=== PATIENT | female | born 1950 | race Caucasian/White ===

== ENCOUNTER 2019-05-25 11:57 | Emergency (ER) | payer MEDICARE, OTHER ==
[~2019-05-25] VITALS: Ht 157 cm; Wt 96.9 kg
--- NOTE | 2019-05-25 12:44 | ED Cough/URI ---
General Chief Complaint: Respiratory Problems Stated Complaint: COUGH; SOB Source: patient Exam Limitations: no limitations History of Present Illness Date Seen by Provider: May 25, 2019 Time Seen by Provider: 12:41 Initial Comments Patient presents with cough, nasal congestion, body aches and chills for the past 3 days. States that she has been exposed to multiple people with the flu, primarily at her work. She did not get the flu shot this year. Denies any history of heart or lung problems. Denies abdominal pain or vomiting, does have some nausea. Denies any sinus pain pressure or headache. Taking some itht-kjz-jftuczv cold medicine with minimal relief. Allergies and Home Medications Allergies Coded Allergies: No Known Drug Allergies (Unverified , 05/25/19) Home Medications Albuterol Sulfate 2.5 Mg/0.5 Ml Vial.neb, 2.5 MG INH Q4H Prescribed by: HEATHER VIDALES on 05/25/19 1358 Ibuprofen 800 Mg Tablet, 800 MG PO Q8H PRN for PAIN-MILD Prescribed by: HEATHER VIDALES on 05/25/19 1358 Oseltamivir Phosphate 75 Mg Cap, 75 MG PO BID Prescribed by: HEATHER VIDALES on 05/25/19 1358 Patient Home Medication List Home Medication List Reviewed: Yes Review of Systems Review of Systems Constitutional: see HPI, chills, fever, malaise EENTM: nose congestion; No ear pain, No hoarseness Respiratory: see HPI, cough; No hemoptysis, No orthopnea, No short of breath Cardiovascular: No chest pain, No palpitations, No syncope Gastrointestinal: No abdominal pain, No diarrhea; loss of appetite, nausea; No vomiting Musculoskeletal: No back pain, No joint pain Skin: No change in color, No rash Past Lojhksf-Ohiajc-Aojcax Hx Past Med/Social Hx: Reviewed Nursing Past Med/Soc Hx Patient Social History Recent Foreign Travel: No Contact w/Someone Who Travel: No Physical Exam Vital Signs - First Documented 05/25/19 12:56 Temp 37.0 Pulse 76 Resp 20 B/P (MAP) 167/81 (109) Pulse Ox 94 Capillary Refill : Height: '" Weight: lbs. oz. kg; BMI Method: General Appearance: WD/WN, no apparent distress HEENT: normal ENT inspection, TMs normal, pharynx normal Neck: non-tender, supple Respiratory: chest non-tender, lungs clear, normal breath sounds, no respiratory distress, no accessory muscle use Cardiovascular: regular rate, rhythm, no edema, no gallop Gastrointestinal: normal bowel sounds, non tender, soft Extremities: non-tender, normal inspection Neurologic/Psychiatric: no motor/sensory deficits, alert, normal mood/affect Skin: normal color, warm/dry Progress/Results/Core Measures Suspected Sepsis SIRS Temperature: Pulse: Respiratory Rate: Blood Pressure / Mean: Results/Orders Micro Results Microbiology 05/25/19 Influenza Types A,B Antigen (RAMON) - Final, Complete My Orders Orders - HEATHER VIDALES DO Influenza A And B Antigens (05/25/19 12:39) Chest 1 View Ap/Pa Only (05/25/19 12:39) Albuterol/Ipra Inhalation Soln (Duoneb I (05/25/19 12:45) Svn Small Volume Nebulizer (05/25/19 12:39) Medications Given in ED Current Medications Medications Dose Ordered Sig/Lili Route Start Time Stop Time Status Last Admin Dose Admin Albuterol/ Ipratropium 3 ml ONCE ONCE INH 05/25/19 12:45 05/25/19 12:46 DC 05/25/19 12:53 3 ML Vital Signs/I&O 05/25/19 12:56 Temp 37.0 Pulse 76 Resp 20 B/P (MAP) 167/81 (109) Pulse Ox 94 Capillary Refill : Progress Note : Progress Note feeling better after Duoneb. Delay in getting influenza swab results due to lab oversight. Apologized to pt for the unusual wait, she in understanding. Discussed mgmt of her sx and need to stay home from work the rest of this week. she agrees and expresses understanding. See PCP as needed, ER if worse. Diagnostic Imaging Diagonstic Imaging: Xray Plain Films/CT/US/NM/MRI: chest Comments no acute process Departure Impression Primary Impression: Influenza A Disposition: HOME, SELF-CARE Condition: Improved Departure-Patient Inst. Decision time for Depature: 12:44 Referrals: NO,LOCAL PHYSICIAN (PCP/Family) Primary Care Physician Patient Instructions: Flu, Adult (DC) Scripts Oseltamivir Phosphate (Tamiflu) 75 Mg Cap 75 MG PO BID for 5 Days, #10 CAP Prov: HEATHER VIDALES DO 05/25/19 Ibuprofen (Ibuprofen) 800 Mg Tablet 800 MG PO Q8H PRN for PAIN-MILD, #30 TAB Prov: HEATHER VIDALES DO 05/25/19 Albuterol Sulfate (Albuterol Sulfate) 2.5 Mg/0.5 Ml Vial.neb 2.5 MG INH Q4H for SHORTNESS OF BREATH, #30 EACH 1 Refill Prov: HEATHER VIDALES DO 05/25/19 Work/School Note: Work Release Form Date Seen in the Emergency Department: May 25, 2019 Return to Work: May 30, 2019 HEATHER VIDALES DO May 25, 2019 12:44
[2019-05-25] MEDS ORDERED: RT-ALBUTEROL/IPRATROPIUM 3 ML (DUONEB) VIAL INH ONE (12:45)
--- NOTE | 2019-05-25 13:10 | Diagnostic Imaging Report ---
Indication: Shortness of breath and cough Portable chest 12:46 PM Heart size and pulmonary vascularity are normal. Lungs are clear. There are no effusions or pneumothoraces. IMPRESSION: Negative chest Dictated by: Dictated on workstation # [id number]
[2019-05-25] MEDS ORDERED: IBUP-1780 PO (13:58)
[2019-05-25] MEDS ORDERED: OSLT75C PO (13:58)
[2019-05-25] MEDS ORDERED: ALB0.5V INH (13:58)
[2019-05-25 14:13] VITALS: BP 160/87
== END 2019-05-25 14:13 | disposition home or self-care (01) ==
LOC: ER FS 12:00
DX: J10.1 Influenza due to other identified influenza virus with other respiratory manifestations (principal)
CPT/HCPCS: 71045; 87804

== ENCOUNTER 2020-06-05 17:39 | Emergency (ER) | payer MEDICARE, OTHER ==
[~2020-06-05] VITALS: Ht 160 cm; Wt 85.0 kg
[~2020-06-05 17:39] MED LIST: ALB0.5V INH; IBUP-1780 PO; OSLT75C PO
[2020-06-05] MEDS ORDERED: LACTATED RINGERS 1,000 ML IV SCH (18:00)
[2020-06-05] MEDS ORDERED: ONDANSETRON 4 MG/2 ML (SDV) Z0FRAN IVP ONE (18:00)
[2020-06-05 18:05] LABS: HEMATOCRIT 45 % (35-52); HEMOGLOBIN 14.7 G/DL (11.5-16.0); LYMPHOCYTES % (AUTO) 4 % (12-44); MEAN CORPUSCULAR HEMOGLOBIN 28 PG (25-34); MEAN CORPUSCULAR HGB CONC 33 G/DL (32-36); MEAN CORPUSCULAR VOLUME 84 FL (80-99); MEAN PLATELET VOLUME 11.6 FL (7.4-10.4); MONOCYTES % (AUTO) 6 % (0-12); NEUTROPHILS % (AUTO) 89 % (42-75); PLATELET COUNT 293 10^3/uL (130-400)
[2020-06-05 18:06] LABS: BASOPHILS % (AUTO) 0 % (0-10); EOSINOPHILS # (AUTO) 0.1 10^3/uL (0.0-0.3); EOSINOPHILS % (AUTO) 1 % (0-10); LYMPHOCYTES # (AUTO) 0.7 X 10^3 (1.0-4.0); NEUTROPHILS # (AUTO) 15.1 X 10^3 (1.8-7.8)
--- NOTE | 2020-06-05 18:07 | ED GI ---
General Chief Complaint: Abdominal/GI Problems Stated Complaint: VOMITING; SYNCOPE; HYPERGLYCEMIA (208) Source of Information: Patient, Family Exam Limitations: No Limitations History of Present Illness Date Seen by Provider: Jun 05, 2020 Time Seen by Provider: 17:54 69-year-old female with a history of hypertension and diabetes presents with nausea, vomiting, dizziness. Patient states that her problems go back several months when she started having daily nausea with a new diabetic medication (Ozempic). Patient's PCP told her to expect some nausea with the medication and so she has been dealing with it at home but it has been mild. Patient states that her doctor also put her on a 30-day prescription of increased diuretics. This morning when the patient woke up she had increased nausea and has had several episodes of dry heaving throughout the day. Nonbloody nonbilious. Patient denies any diarrhea with the episodes. Patient states that during the episodes she would also have a clammy feeling and felt dizzy. Today she had an episode after vomiting where she had to lower herself to the floor but did not lose consciousness. Patient thinks she has been eating less over the past several months because of the new medication and thinks she may be dehydrated today. Patient denies any chest pain, fevers, abdominal pain, dysuria. Patient does note decreased urination. Allergies and Home Medications Allergies Coded Allergies: No Known Drug Allergies (Unverified , 05/25/19) Home Medications Albuterol Sulfate 2.5 Mg/0.5 Ml Vial.neb, 2.5 MG INH Q4H Prescribed by: HEATHER VIDALES on 05/25/19 1358 Ibuprofen 800 Mg Tablet, 800 MG PO Q8H PRN for PAIN-MILD Prescribed by: HEATHER FAJARDOSTINE on 05/25/19 1358 Oseltamivir Phosphate 75 Mg Cap, 75 MG PO BID Prescribed by: HEATHER FAJARDOSTSUYAPA on 05/25/19 1358 Patient Home Medication List Home Medication List Reviewed: Yes Review of Systems Review of Systems Constitutional: No chills; diaphoresis; No fever EENTM: No Symptoms Reported Respiratory: Denies Cough, Denies SOA With Exertion Cardiovascular: Denies Chest Pain; Lightheadedness Gastrointestinal: Denies Abdominal Pain, Denies Constipated, Denies Diarrhea; Nausea, Poor Appetite, Vomiting Genitourinary: Denies Burning, Denies Discharge, Denies Frequency, Denies Incontinence All Other Systems Reviewed Negative Unless Noted: Yes Past Oeeyxrj-Ymdyst-Ndznbd Hx Past Med/Social Hx: Reviewed Nursing Past Med/Soc Hx Patient Social History Alcohol Use: Denies Use Smoking Status: Never a Smoker 2nd Hand Smoke Exposure: No Recent Hopitalizations: No Seasonal Allergies Seasonal Allergies: No Past Medical History Surgeries: Yes Orthopedic Respiratory: No Cardiac: Yes Hypertension Neurological: No Genitourinary: No Gastrointestinal: No Musculoskeletal: No Endocrine: Yes Diabetes, Non-Insulin dep HEENT: No Cancer: No Psychosocial: No Integumentary: No Blood Disorders: No Family Medical History Reviewed Nursing Family Hx Physical Exam Vital Signs Vital Signs - First Documented 06/05/20 18:02 Temp 36.2 Pulse 79 Resp 18 B/P (MAP) 128/62 (84) Pulse Ox 97 O2 Delivery Room Air Capillary Refill : Height/Weight/BMI Height: '" Weight: lbs. oz. kg; 39.00 BMI Method: General Appearance: WD/WN, no apparent distress HEENT: PERRL/EOMI, normal ENT inspection Neck: non-tender, supple Respiratory: chest non-tender, lungs clear, normal breath sounds Cardiovascular: regular rate, rhythm, no JVD, no murmur Gastrointestinal: normal bowel sounds, non tender, soft Extremities: non-tender, pedal edema Neurologic/Psychiatric: storage battery charger II-XII nml as tested, no motor/sensory deficits, alert, normal mood/affect, oriented x 3 Skin: normal color, warm/dry Lymphatic: no adenopathy Progress/Results/Core Measures Results/Orders Lab Results Laboratory Tests Test 06/05/20 17:50 06/05/20 18:08 Range/Units White Blood Count 17.0 H 4.3-11.0 10^3/uL Red Blood Count 5.30 4.35-5.85 10^6/uL Hemoglobin 14.7 11.5-16.0 G/DL Hematocrit 45 35-52 % Mean Corpuscular Volume 84 80-99 FL Mean Corpuscular Hemoglobin 28 25-34 PG Mean Corpuscular Hemoglobin Concent 33 32-36 G/DL Red Cell Distribution Width 13.5 10.0-14.5 % Platelet Count 293 130-400 10^3/uL Mean Platelet Volume 11.6 H 7.4-10.4 FL Immature Granulocyte % (Auto) 1 % Neutrophils (%) (Auto) 89 H 42-75 % Lymphocytes (%) (Auto) 4 L 12-44 % Monocytes (%) (Auto) 6 0-12 % Eosinophils (%) (Auto) 1 0-10 % Basophils (%) (Auto) 0 0-10 % Neutrophils # (Auto) 15.1 H 1.8-7.8 X 10^3 Lymphocytes # (Auto) 0.7 L 1.0-4.0 X 10^3 Monocytes # (Auto) 1.0 0.0-1.0 X 10^3 Eosinophils # (Auto) 0.1 0.0-0.3 10^3/uL Basophils # (Auto) 0.0 0.0-0.1 10^3/uL Immature Granulocyte # (Auto) 0.1 0.0-0.1 10^3/uL Neutrophils % (Manual) 93 % Lymphocytes % (Manual) 3 % Monocytes % (Manual) 3 % Band Neutrophils 1 % Toxic Granulation 4+ Target Cells SLIGHT Prothrombin Time 13.0 12.2-14.7 SEC INR Comment 1.0 0.8-1.4 Sodium Level 138 135-145 MMOL/L Potassium Level 3.6 3.6-5.0 MMOL/L Chloride Level 97 L 98-107 MMOL/L Carbon Dioxide Level 28 21-32 MMOL/L Anion Gap 13 5-14 MMOL/L Blood Urea Nitrogen 27 H 7-18 MG/DL Creatinine 0.81 0.60-1.30 MG/DL Estimat Glomerular Filtration Rate > 60 BUN/Creatinine Ratio 33 Glucose Level 238 H 70-105 MG/DL Calcium Level 9.3 8.5-10.1 MG/DL Corrected Calcium 9.4 8.5-10.1 MG/DL Magnesium Level 1.4 L 1.6-2.4 MG/DL Total Bilirubin 0.7 0.1-1.0 MG/DL Aspartate Amino Transf (AST/SGOT) 18 5-34 U/L Alanine Aminotransferase (ALT/SGPT) 21 0-55 U/L Alkaline Phosphatase 66 40-136 U/L Troponin I < 0.30 <0.30 NG/ML C-Reactive Protein 1.60 H <0.50 MG/DL Pro-B-Type Natriuretic Peptide 150.9 H <75.0 PG/ML Total Protein 7.5 6.4-8.2 GM/DL Albumin 3.9 3.2-4.5 GM/DL Lipase 25 8-78 U/L Urine Color DARK YELLOW Urine Clarity SLIGHTLY CLOUDY Urine pH 6.0 5-9 Urine Specific [place] 1.025 H 1.016-1.022 Urine Protein TRACE H NEGATIVE Urine Glucose (UA) NEGATIVE NEGATIVE Urine Ketones TRACE H NEGATIVE Urine Nitrite NEGATIVE NEGATIVE Urine Bilirubin NEGATIVE NEGATIVE Urine Urobilinogen 0.2 < = 1.0 MG/DL Urine Leukocyte Esterase NEGATIVE NEGATIVE Urine RBC (Auto) NEGATIVE NEGATIVE Urine RBC 0-2 /HPF Urine WBC 10-25 H /HPF Urine Squamous Epithelial Cells 10-25 H /HPF Urine Crystals NONE /LPF Urine Bacteria FEW H /HPF Urine Casts NONE /LPF Urine Mucus LARGE H /LPF Urine Culture Indicated YES My Orders Orders - HENRY SANCHEZ MD Comprehensive Metabolic Panel (06/05/20 17:59) Lipase (06/05/20 17:59) Ua Culture If Indicated (06/05/20 17:59) Cbc With Automated Diff (06/05/20 17:59) Crp Fs (06/05/20 17:59) Protime With Inr (06/05/20 17:59) Magnesium (06/05/20 17:59) Orthostatic Vital Signs (Adult (06/05/20 17:59) Ekg-Prn For Chest Pain Or Rhyt (06/05/20 17:59) Chest 1 View Ap/Pa Only (06/05/20 17:59) Abdomen (Kub) 1 View (06/05/20 17:59) Ondansetron Injection (Zofran Injectio (06/05/20 18:00) Lactated Ringers (Lr 1000 Ml Iv Solution (06/05/20 18:00) Troponin I Fs (06/05/20 17:59) Probnp Fs (06/05/20 17:59) Manual Differential (06/05/20 17:50) Urine Culture (06/05/20 18:08) Rx-Ondansetron Po (Rx-Zofran Po) (06/05/20 19:14) Medications Given in ED Current Medications Medications Dose Ordered Sig/Lili Route Start Time Stop Time Status Last Admin Dose Admin Ondansetron HCl 4 mg ONCE ONCE IVP 06/05/20 18:00 06/05/20 18:03 DC 06/05/20 18:16 4 MG Vital Signs/I&O 06/05/20 06/05/20 06/05/20 18:02 18:09 19:09 Temp 36.2 Pulse 79 75 72 85 78 88 79 Resp 18 B/P (MAP) 128/62 (84) 125/56 (79) 118/57 (77) 119/66 (83) 113/58 (76) 82/56 (65) 109/62 (78) Pulse Ox 97 O2 Delivery Room Air Progress Progress Note : Progress Note 1900 -patient feels better after IV fluids and antiemetics. 69-year-old with near syncope, nausea, vomiting. EKG and troponin negative for ACS. Chest x-ray negative for pneumonia or CHF or pleural effusions. KUB negative for obvious obstruction. UA appears to be a poor specimen so will not treat for UTI given no urinary tract infection symptoms. Labs with elevated white count and CRP but no obvious signs of infection otherwise. Patient orthostatic with history of recently doubling diuretics and feels better after IV fluids so likely dehydration. Discussed reasons to return to emergency room to which patient voiced understanding and agreement with plan of care Initial ECG Impression Date: Jun 05, 2020 Initial ECG Impression Time: 17:57 Initial ECG Rate: 76 Initial ECG Rhythm: Normal Sinus Initial ECG Intervals: Normal Comment left axis deviation Diagnostic Imaging Comments cxr - no acute cardiopulmonary process kub - no acute abdominal process Departure Impression Primary Impression: Nausea and vomiting Qualified Codes: R11.2 - Nausea with vomiting, unspecified Additional Impressions: Pre-syncope Dehydration Orthostatic hypotension Disposition: 01 HOME, SELF-CARE Condition: Stable Departure-Patient Inst. Decision time for Depature: 19:25 Referrals: NO,LOCAL PHYSICIAN (PCP/Family) Primary Care Physician Patient Instructions: Nausea and Vomiting, Adult, Dehydration, Adult (DC) HENRY SANCHEZ MD Jun 05, 2020 18:07
[2020-06-05 18:09] VITALS: BP_SYST 119; BP_SYST 125; BP_SYST 82; BP_DIAS 56; BP_DIAS 66
[2020-06-05 18:12] LABS: BAND NEUTROPHILS 1 %; LYMPHOCYTES % (MANUAL) 3 %; MONOCYTES % (MANUAL) 3 %; NEUTROPHILS % (MANUAL) 93 %; TARGET CELLS SLIGHT; TOXIC GRANULATION/VACUOLAZATIO 4+
[2020-06-05 18:15] LABS: MAGNESIUM 1.4 MG/DL (1.6-2.4)
[2020-06-05 18:20] LABS: ALANINE AMINOTRANSFERASE 21 U/L (0-55); ALBUMIN 3.9 GM/DL (3.2-4.5); ALKALINE PHOSPHATASE 66 U/L (40-136); BILIRUBIN,TOTAL 0.7 MG/DL (0.1-1.0); BUN/CREATININE RATIO 33; CALCIUM 9.3 MG/DL (8.5-10.1); CARBON DIOXIDE 28 MMOL/L (21-32); CHLORIDE 97 MMOL/L (98-107); CREATININE SERUM 0.81 MG/DL (0.60-1.30); GFR ESTIMATED > 60; GLUCOSE 238 MG/DL (70-105); LIPASE 25 U/L (8-78); POTASSIUM 3.6 MMOL/L (3.6-5.0); SODIUM 138 MMOL/L (135-145); TOTAL PROTEIN 7.5 GM/DL (6.4-8.2)
[2020-06-05 18:21] LABS: BACTERIA,URINE FEW /HPF; BILIRUBIN,URINE NEGATIVE (NEGATIVE); CLARITY,URINE SLIGHTLY CLOUDY; COLOR,URINE DARK YELLOW; GLUCOSE, URINE (UA) NEGATIVE (NEGATIVE); KETONES,URINE TRACE (NEGATIVE); LEUKOCYTE ESTERASE ,URINE NEGATIVE (NEGATIVE); NITRITE,URINE NEGATIVE (NEGATIVE); PROTEIN,URINE TRACE (NEGATIVE); RBC,URINE 0-2 /HPF
--- NOTE | 2020-06-05 18:35 | Diagnostic Imaging Report ---
EXAMINATION: Chest radiograph, portable AP view. DATE: 06/05/2020 6:29 PM INDICATION: 69-year-old female, dizziness. COMPARISON: May 25, 2019. FINDINGS: There is cervical spine hardware. Heart size and mediastinal contours are unchanged. There is no identified pneumothorax. There is no large pleural effusion. There is no identified focal airspace consolidation. There is widening of the left acromioclavicular joint. IMPRESSION: No identified acute cardiopulmonary abnormality. Dictated by: Dictated on workstation # [id number]
--- NOTE | 2020-06-05 18:36 | Diagnostic Imaging Report ---
EXAMINATION: Abdominal radiographs, single view, 2 images. DATE: June 05, 2020. CLINICAL INDICATION: 69-year-old female, nausea. COMPARISON: None. COMMENTS: There are gas filled segments of small and large bowel which are not abnormally distended. There is no identified free intraperitoneal air on limited supine assessment. No identified portal venous gas or pneumatosis. There are multilevel degenerative changes of the spine. There are atherosclerotic calcifications. There is no identified abnormal radiodensity overlying the expected positions of the kidneys or ureters. 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 IMPRESSION: 1. No radiographically apparent acute abdominal abnormality. Dictated by: Dictated on workstation # [id number]
[2020-06-05 19:09] VITALS: BP_SYST 109; BP_SYST 113; BP_SYST 118; BP_DIAS 57; BP_DIAS 58; BP_DIAS 62
[2020-06-05] MEDS ORDERED: RX-ONDANSETRON 4 MG ODT (ZOFRAN) PPK #4 PO STA (19:14)
[2020-06-05] MEDS ORDERED: ONDN4T PO (19:26)
[2020-06-05 19:48] VITALS: BP 109/64
== END 2020-06-05 19:49 | disposition home or self-care (01) ==
LOC: EDUNIT# 17:39 → ER FS 17:42
DX: R55 Syncope and collapse (principal); E86.0 Dehydration
CPT/HCPCS: 36415; 71045; 74018; 80053; 81000; 83690; 83735; 83880; 84484; 85007; 85027; 85610; 86141; 87088; 93005

== ENCOUNTER 2022-01-07 10:49 | Emergency (ER) | payer MEDICARE, OTHER ==
[~2022-01-07] VITALS: Ht 157.4 cm; Wt 91.8 kg
[~2022-01-07 10:49] MED LIST changes: +ONDN4T PO
--- NOTE | 2022-01-07 11:09 | ED Cardiac General ---
History of Present Illness General Chief Complaint: Cardiac/General Problems Stated Complaint: HIGH BP, HEADACHE History of Present Illness Date Seen by Provider: Jan 07, 2022 Time Seen by Provider: 11:04 Initial Comments 71-year-old female here with complaints of elevated blood pressure. Patient states she had a headache for about a month. She thought has been sinus issues so she has been taking Astelin and Flonase. States has not really gotten better. She went for a dental procedure yesterday. Patient was seen and they noted a blood pressure with a systolic in the 200s so they did not do the procedure. She then went home and monitor blood pressure all day. Patient is on atenolol and lisinopril. Patient states she was on amlodipine but that started causing swelling in the legs and so they took her off of that and doubled her lisinopril. Patient states her job is very stressful. 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 Is a financial company. The patient states that they are busy try to figure that out. Patient states she has had has had some nausea. Does have some shortness of breath and feels like she may be had some wheezing. She does have a headache. With some mild blurriness in her vision. No neck pain no chest pain. She does follow with a pigment mixer but its been a few years since they did a stress test. Allergies and Home Medications Allergies Coded Allergies: No Known Drug Allergies (Unverified , 05/25/19) Patient Home Medication List Home Medication List Reviewed: Yes Albuterol Sulfate (Albuterol Sulfate) 2.5 Mg/0.5 Ml Vial.neb, 2.5 MG INH Q4H Prescribed by: HEATHER VIDALES on 05/25/19 1358 Clonidine HCl (Clonidine HCl) 0.1 Mg Tablet, 0.1 MG PO TID Prescribed by: Anne Layton on 01/07/22 1412 Ibuprofen (Ibuprofen) 800 Mg Tablet, 800 MG PO Q8H PRN for PAIN-MILD Prescribed by: HEATHER VIDALES on 05/25/19 1358 Ondansetron HCl (Zofran) 4 Mg Tab, 4 MG PO Q8H PRN for NAUSEA/VOMITING-1ST LINE Prescribed by: HENRY SANCHEZ on 06/05/20 192 Oseltamivir Phosphate (Tamiflu) 75 Mg Cap, 75 MG PO BID Prescribed by: HEATHER VIDALES on 05/25/19 1358 Review of Systems Review of Systems Constitutional: see HPI Past Gaiibfw-Pracbo-Gypqra Hx Patient Social History Tobacco Use?: No Substance use?: No Alcohol Use?: Yes Alcohol Frequency: Once in a while Pt feels they are or have been: No Immunizations Up To Date First/Initial COVID19 Vaccinat: 05/23/20 Second COVID19 Vaccination Dequan: 05/23/20 Third COVID19 Vaccination Date: 05/23/20 Seasonal Allergies Seasonal Allergies: No Past Medical History Surgery/Hospitalization HX: HTN; DM; High Cholesterol Surgeries: Yes Orthopedic Respiratory: No Cardiac: Yes Hypertension Neurological: No Genitourinary: No Gastrointestinal: No Musculoskeletal: No Endocrine: Yes Diabetes, Non-Insulin dep HEENT: No Cancer: No Psychosocial: No Integumentary: No Blood Disorders: No Physical Exam Vital Signs Vital Signs - First Documented 01/07/22 10:53 Temp 36.9 Pulse 70 Resp 16 B/P (MAP) 169/93 (118) Pulse Ox 97 O2 Delivery Room Air Capillary Refill : Height, Weight, BMI Height: '" Weight: lbs. oz. kg; 33.00 BMI Method: General Appearance: No Apparent Distress, WD/WN HEENT: PERRL/EOMI, TMs Normal, Normal ENT Inspection, Pharynx Normal Neck: Normal Inspection, Supple Respiratory: Chest Non Tender, Lungs Clear, Normal Breath Sounds Cardiovascular: Regular Rate, Rhythm, No Murmur Gastrointestinal: Non Tender, Soft Neurologic/Psychiatric: Alert, Oriented x3 Skin: Normal Color, Warm/Dry Progress/Results/Core Measures Results/Orders Lab Results Laboratory Tests Test 01/07/22 11:23 Range/Units White Blood Count 8.5 4.3-11.0 10^3/uL Red Blood Count 4.80 3.80-5.11 10^6/uL Hemoglobin 13.5 11.5-16.0 g/dL Hematocrit 40 35-52 % Mean Corpuscular Volume 84 80-99 fL Mean Corpuscular Hemoglobin 28 25-34 pg Mean Corpuscular Hemoglobin Concent 34 32-36 g/dL Red Cell Distribution Width 13.9 10.0-14.5 % Platelet Count 243 130-400 10^3/uL Mean Platelet Volume 11.5 9.0-12.2 fL Immature Granulocyte % (Auto) 0 % Neutrophils (%) (Auto) 68 42-75 % Lymphocytes (%) (Auto) 21 12-44 % Monocytes (%) (Auto) 8 0-12 % Eosinophils (%) (Auto) 2 0-10 % Basophils (%) (Auto) 1 0-10 % Neutrophils # (Auto) 5.8 1.8-7.8 10^3/uL Lymphocytes # (Auto) 1.8 1.0-4.0 10^3/uL Monocytes # (Auto) 0.7 0.0-1.0 10^3/uL Eosinophils # (Auto) 0.2 0.0-0.3 10^3/uL Basophils # (Auto) 0.1 0.0-0.1 10^3/uL Immature Granulocyte # (Auto) 0.0 0.0-0.1 10^3/uL Prothrombin Time 12.7 12.2-14.7 SEC INR Comment 0.9 0.8-1.4 Activated Partial Thromboplast Time 29 24-35 SEC Sodium Level 140 135-145 MMOL/L Potassium Level 4.1 3.6-5.0 MMOL/L Chloride Level 105 98-107 MMOL/L Carbon Dioxide Level 24 21-32 MMOL/L Anion Gap 11 5-14 MMOL/L Blood Urea Nitrogen 18 7-18 MG/DL Creatinine 0.75 0.60-1.30 MG/DL Estimat Glomerular Filtration Rate 84 BUN/Creatinine Ratio 24 Glucose Level 130 H 70-105 MG/DL Calcium Level 8.9 8.5-10.1 MG/DL Corrected Calcium 9.3 8.5-10.1 MG/DL Magnesium Level 1.9 1.6-2.4 MG/DL Total Bilirubin 0.6 0.1-1.0 MG/DL Aspartate Amino Transf (AST/SGOT) 17 5-34 U/L Alanine Aminotransferase (ALT/SGPT) 15 0-55 U/L Alkaline Phosphatase 64 40-136 U/L Troponin I < 0.30 <0.30 NG/ML Total Protein 6.4 6.4-8.2 GM/DL Albumin 3.5 3.2-4.5 GM/DL My Orders Orders - ANNE LAYTON MD Cbc With Automated Diff (01/07/22 11:25) Magnesium (01/07/22 11:25) Chest 1 View Ap/Pa Only (01/07/22 11:25) Ekg Tracing (01/07/22 11:25) Comprehensive Metabolic Panel (01/07/22 11:25) Protime With Inr (01/07/22 11:25) Partial Thromboplastin Time (01/07/22 11:25) Monitor-Rhythm Ecg Trace Only (01/07/22 11:25) Troponin I Fs (01/07/22 11:25) Clonidine Tablet (Catapres Tablet) (01/07/22 13:00) Medications Given in ED Vital Signs/I&O 01/07/22 01/07/22 10:53 14:20 Temp 36.9 Pulse 70 58 Resp 16 16 B/P (MAP) 169/93 (118) 156/64 Pulse Ox 97 94 O2 Delivery Room Air Room Air Progress Progress Note : Time: 14:08 Progress Note Patient is feeling sleepy but blood pressure is better. Again not having any vision changes or numbness or weakness. Will send home with clonidine. ER precautions given. Follow-up with primary care or cardiology. EKG : EKG Time: 11:28 Rate: 59 Rhythm: S.[facility] Diagnostic Imaging Diagonstic Imaging: Xray Comments NAME: FAB[facility] REC#: [id number] PT STATUS: REG ER : 1950 PHYSICIAN: ANNE LAYTON MD ADMIT DATE: 01/07/22/ER FS Signed Date of Exam:01/07/22 CHEST 1 VIEW AP/PA ONLY EXAMINATION: Chest, 1 view. HISTORY: Hypertension. Shortness of breath. COMPARISON: 06/05/2020. FINDINGS: The lung volumes are normal. No focal consolidation is seen. No large pleural effusion or pneumothorax is seen. Stable cardiac silhouette. No acute osseous abnormality is seen. IMPRESSION: No acute pleuroparenchymal process. Dictated by: Dictated on workstation # [id number] Dict: 01/07/22 1137 Trans: 01/07/22 1140 [id number] Interpreted by: CLINTON ZABALA DO Electronically signed by: CLINTON ZABALA DO 01/07/22 1140 Departure Impression Primary Impression: Hypertension Qualified Codes: I10 - Essential (primary) hypertension Disposition: 01 HOME, SELF-CARE Condition: Stable Departure-Patient Inst. Decision time for Depature: 14:09 Referrals: LARS WATERS MD (PCP/Family) Primary Care Physician Patient Instructions: High Blood Pressure (DC), DASH Diet, Medicines for High Blood Pressure Add. Discharge Instructions: take clonidine 0.1 mg three times a day as needed if bp systolic is >170. ER if symptoms worsen. Follow up with Primary care or cardiology within one week. All discharge instructions reviewed with patient and/or family. Voiced understanding. Scripts Clonidine HCl (Clonidine HCl) 0.1 Mg Tablet 0.1 MG PO TID for 7 Days, #21 TAB Prov: ANNE LAYTON MD 01/07/22 Work/School Note: Work Release Form Date Seen in the Emergency Department: Jan 07, 2022 Return to Work: Jan 09, 2022 Restrictions: No Restrictions Other Restrictions Listed Below: may return to work if symptoms are resolved. ANNE LAYTON MD Jan 07, 2022 11:09
[2022-01-07 11:29] LABS: BASOPHILS # (AUTO) 0.1 10^3/uL (0.0-0.1); BASOPHILS % (AUTO) 1 % (0-10); EOSINOPHILS # (AUTO) 0.2 10^3/uL (0.0-0.3); EOSINOPHILS % (AUTO) 2 % (0-10); HEMATOCRIT 40 % (35-52); HEMOGLOBIN 13.5 g/dL (11.5-16.0); LYMPHOCYTES # (AUTO) 1.8 10^3/uL (1.0-4.0); LYMPHOCYTES % (AUTO) 21 % (12-44); MEAN CORPUSCULAR HEMOGLOBIN 28 pg (25-34); MEAN CORPUSCULAR HGB CONC 34 g/dL (32-36); MEAN CORPUSCULAR VOLUME 84 fL (80-99); MEAN PLATELET VOLUME 11.5 fL (9.0-12.2); MONOCYTES # (AUTO) 0.7 10^3/uL (0.0-1.0); MONOCYTES % (AUTO) 8 % (0-12); NEUTROPHILS # (AUTO) 5.8 10^3/uL (1.8-7.8); NEUTROPHILS % (AUTO) 68 % (42-75); PLATELET COUNT 243 10^3/uL (130-400); WHITE BLOOD COUNT 8.5 10^3/uL (4.3-11.0)
--- NOTE | 2022-01-07 11:39 | Diagnostic Imaging Report ---
EXAMINATION: Chest, 1 view. HISTORY: Hypertension. Shortness of breath. COMPARISON: 06/05/2020. FINDINGS: The lung volumes are normal. No focal consolidation is seen. No large pleural effusion or pneumothorax is seen. Stable cardiac silhouette. No acute osseous abnormality is seen. IMPRESSION: No acute pleuroparenchymal process. Dictated by: Dictated on workstation # [id number]
[2022-01-07 11:42] LABS: INR 0.9 (0.8-1.4); PROTHROMBIN TIME PATIENT 12.7 SEC (12.2-14.7)
[2022-01-07 11:43] LABS: ALBUMIN 3.5 GM/DL (3.2-4.5); BILIRUBIN,TOTAL 0.6 MG/DL (0.1-1.0); CALCIUM 8.9 MG/DL (8.5-10.1); CREATININE SERUM 0.75 MG/DL (0.60-1.30); MAGNESIUM 1.9 MG/DL (1.6-2.4); POTASSIUM 4.1 MMOL/L (3.6-5.0); TOTAL PROTEIN 6.4 GM/DL (6.4-8.2)
[2022-01-07] MEDS ORDERED: cloNIDine 0.1 MG (CATAPRES) TAB PO ONE (13:00)
[2022-01-07] MEDS ORDERED: CLN.1T PO (14:12)
[2022-01-07 14:20] VITALS: BP 156/64
== END 2022-01-07 14:22 | disposition home or self-care (01) ==
LOC: EDUNIT# 10:49 → ER FS 10:50
DX: I10 Essential (primary) hypertension (principal); Z79.899 Other long term (current) drug therapy
CPT/HCPCS: 36415; 71045; 80053; 83735; 84484; 85025; 85610; 85730; 93005; 93041

== ENCOUNTER 2022-05-22 15:55 | Emergency (ER) | payer MEDICARE, OTHER ==
[~2022-05-22] VITALS: Ht 157 cm; Wt 87.0 kg
[~2022-05-22 15:55] MED LIST changes: +CLN.1T PO
--- NOTE | 2022-05-22 16:10 | ED Back Pain ---
General Chief Complaint: Back Problems Stated Complaint: LOWER BACK/RIGHT LEG PAIN LEFT LEG WEAKNESS History of Present Illness Date Seen by Provider: May 22, 2022 Time Seen by Provider: 16:09 Initial Comments 71-year-old female with PMH of chronic back pain and 2 spinal surgeries at the L4-L5 level, with the last one being 5 years ago, is sent here from the clinic for back pain. After speaking with the patient, the patient states that the pain is not really in her back but in her right buttock, and is radiating down her right leg causing severe tingling, but states that her sensation is still present. Denies headache, falls, trauma, urinary or fecal retention. Allergies and Home Medications Allergies Coded Allergies: No Known Drug Allergies (Unverified , 05/25/19) Patient Home Medication List Home Medication List Reviewed: Yes Albuterol Sulfate (Albuterol Sulfate) 2.5 Mg/0.5 Ml Vial.neb, 2.5 MG INH Q4H Prescribed by: HEATHER VIDALES on 05/25/19 1358 Clonidine HCl (Clonidine HCl) 0.1 Mg Tablet, 0.1 MG PO TID Prescribed by: Anne Payton on 01/07/22 1412 Ibuprofen (Ibuprofen) 800 Mg Tablet, 800 MG PO Q8H PRN for PAIN-MILD Prescribed by: HEATHER VIDALES on 05/25/19 1358 Ondansetron HCl (Zofran) 4 Mg Tab, 4 MG PO Q8H PRN for NAUSEA/VOMITING-1ST LINE Prescribed by: HENRY SANCHEZ on 06/05/20 192 Oseltamivir Phosphate (Tamiflu) 75 Mg Cap, 75 MG PO BID Prescribed by: HEATHER VIDALES on 05/25/19 1358 Review of Systems Constitutional: no symptoms reported EENTM: no symptoms reported Respiratory: no symptoms reported Cardiovascular: no symptoms reported Gastrointestinal: no symptoms reported Genitourinary: no symptoms reported Musculoskeletal: muscle cramps Skin: no symptoms reported Psychiatric/Neurological: See HPICodygling Past Zewrmhd-Dxingp-Srsmki Hx Immunizations Up To Date First/Initial COVID19 Vaccinat: 05/23/20 Second COVID19 Vaccination Dequan: 05/23/20 Third COVID19 Vaccination Date: 05/23/20 Seasonal Allergies Seasonal Allergies: No Past Medical History Surgery/Hospitalization HX: HTN; DM; High Cholesterol Surgeries: Yes Orthopedic Respiratory: No Cardiac: Yes Hypertension Neurological: No Genitourinary: No Gastrointestinal: No Musculoskeletal: No Endocrine: Yes Diabetes, Non-Insulin dep HEENT: No Cancer: No Psychosocial: No Integumentary: No Blood Disorders: No Physical Exam Vital Signs Capillary Refill : Height, Weight, BMI Height: '" Weight: lbs. oz. kg; 37.00 BMI Method: General Appearance: No Apparent Distress, WD/WN HEENT: PERRL/EOMI Neck: Full Range of Motion, Normal Inspection, Non Tender, Supple Gastrointestinal: Normal Bowel Sounds, Non Tender, Soft Back: Normal Inspection, No CVA Tenderness, No Vertebral Tenderness, Other (Right piriformis muscle area shows muscle spasm and tenderness upon palpation in the area. Right straight leg test is positive. 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 PIRIFORMIS SYNDROME: - TOradol im STAT/ Dexa 10mg im STAT with improvement of symptoms after. -Cord compression unlikely since patient is able to walk, and has no saddle anesthesia, no bowel or bladder disturbances at this time. Patient has piriformis syndrome of the right lower extremity causing sciatica and that extremity. -Advised [id number] Lidoderm patches, ibuprofen as needed for pain, heat application -Advised PCP follow-up and also follow-up with her neurosurgeon. Advised to discuss physical therapy with her PCP. -The patient was seen in the ED, and treated appropriately to presentation at a specific point in time. Patient is informed that there is a possibility that disease and illness can evolve and change in acuity rapidly or slowly after patient is discharged from the ER. Precautionary advice given to the patient for immediate return to ER if symptoms worsen or do not resolve, and to seek emergency care sooner rather than later. Pt also advised on the importance of PCP follow up and compliance with management and follow up plan with PCP and/or specialist, as this is part of the management plan. Pt verbally expressed understanding. Departure Impression Primary Impression: Piriformis syndrome of right side Additional Impression: Sciatic neuropathy Qualified Codes: G57.01 - Lesion of sciatic nerve, right lower limb Disposition: HOME, SELF-CARE Condition: Improved Departure-Patient Inst. Referrals: LARS WATERS MD (PCP/Family) Primary Care Physician Patient Instructions: Muscle Spasms (DC), Sciatica ED, Radiculopathy (DC), Sciatica, MANAGING YOUR CHRONIC PAIN, Sciatica Exercises Add. Discharge Instructions: -Advised [id number] Lidoderm patches, ibuprofen as needed for pain, heat application, and sciatic exercises included in discharge information. - Prescription for Flexeril only to be taken at night -Advised PCP follow-up and also follow-up with her neurosurgeon. Advised to discuss physical therapy with her PCP. All discharge instructions reviewed with patient and/or family. Voiced understanding. Scripts Cyclobenzaprine HCl (Cyclobenzaprine HCl) 10 Mg Tablet 10 MG PO HS for 5 Days, #5 TAB Prov: ENRIQUE SAUER MD 05/22/22 Work/School Note: Work Release Form Date Seen in the Emergency Department: May 22, 2022 Return to Work: May 25, 2033 Restrictions: Need Release from Doctor Other Restrictions Listed Below: No heavy lifting ENRIQUE SAUER MD May 22, 2022 16:10
[2022-05-22] MEDS ORDERED: KETOROLAC 30 MG/ML VIAL IM ONE (16:30)
[2022-05-22] MEDS ORDERED: CYCL10TA25 PO (16:49)
[2022-05-22 17:00] VITALS: BP 103/60
== END 2022-05-22 17:00 | disposition home or self-care (01) ==
LOC: EDUNIT# 15:55 → ER FS 15:58
DX: G57.01 Lesion of sciatic nerve, right lower limb (principal); M54.41 Lumbago with sciatica, right side; Z98.890 Other specified postprocedural states
CPT/HCPCS: 99284

== ENCOUNTER 2022-05-31 09:16 | Emergency (ER) | payer MEDICARE, OTHER ==
[~2022-05-31] VITALS: Ht 157 cm; Wt 86.0 kg
[~2022-05-31 09:16] MED LIST changes: +CYCL10TA25 PO
--- NOTE | 2022-05-31 09:39 | ED Back Pain ---
General Chief Complaint: Back Problems Stated Complaint: LT LWR BACK/LEG PAIN Source of Information: Patient Exam Limitations: No Limitations History of Present Illness Date Seen by Provider: May 31, 2022 Time Seen by Provider: 08:50 Initial Comments Patient is a 71-year-old female with history of chronic back pain and sciatica who was evaluated in this emergency department approximately 1 week ago for the same who presents with poorly controlled back pain rating to left leg. Patient has subsequently been evaluated in follow-up with her PCP and is currently taking prednisone and awaiting a final touch up painter 4 days ago. She denies motor weakness or loss of sensation. No loss of bowel or bladder functi on. She states her pain is currently controlled. No other acute symptoms or complaints. Location: Lumbar Spine Timing/Duration: Other Severity: Moderate Pain/Injury Location: Other Method of Injury: Other Modifying Factors: Improves With Other Associated Symptoms: other Allergies and Home Medications Allergies Coded Allergies: No Known Drug Allergies (Unverified , 05/25/19) Patient Home Medication List Home Medication List Reviewed: Yes Albuterol Sulfate (Albuterol Sulfate) 2.5 Mg/0.5 Ml Vial.neb, 2.5 MG INH Q4H Prescribed by: HEATHER VIDALES on 05/25/19 1358 Clonidine HCl (Clonidine HCl) 0.1 Mg Tablet, 0.1 MG PO TID Prescribed by: Anne Payton on 01/07/22 1412 Cyclobenzaprine HCl (Cyclobenzaprine HCl) 10 Mg Tablet, 10 MG PO HS Prescribed by: ENRIQUE SAUER MD on 05/22/22 1649 Ibuprofen (Ibuprofen) 800 Mg Tablet, 800 MG PO Q8H PRN for PAIN-MILD Prescribed by: HEATHER VIDALES on 05/25/19 1358 Ondansetron HCl (Zofran) 4 Mg Tab, 4 MG PO Q8H PRN for NAUSEA/VOMITING-1ST LINE Prescribed by: HENRY SANCHEZ on 06/05/20 192 Oseltamivir Phosphate (Tamiflu) 75 Mg Cap, 75 MG PO BID Prescribed by: HEATHER VIDALES on 05/25/19 1358 Review of Systems Constitutional: see HPI Musculoskeletal: back pain Psychiatric/Neurological: See HPI Past Lenhsnv-Mizndn-Nlwtwz Hx Patient Social History Tobacco Use?: No Immunizations Up To Date First/Initial COVID19 Vaccinat: 05/23/20 Second COVID19 Vaccination Dequan: 05/23/20 Third COVID19 Vaccination Date: 05/23/20 Seasonal Allergies Seasonal Allergies: No Past Medical History Surgery/Hospitalization HX: HTN; DM; High Cholesterol Surgeries: Yes Orthopedic Respiratory: No Cardiac: Yes Hypertension Neurological: No Genitourinary: No Gastrointestinal: No Musculoskeletal: No Endocrine: Yes Diabetes, Non-Insulin dep HEENT: No Cancer: No Psychosocial: No Integumentary: No Blood Disorders: No Physical Exam Vital Signs Vital Signs - First Documented 05/31/22 09:25 Temp 36.7 Pulse 73 Resp 16 B/P (MAP) 159/87 (111) Pulse Ox 100 O2 Delivery Room Air Capillary Refill : Height, Weight, BMI Height: '" Weight: lbs. oz. kg; 35.00 BMI Method: General Appearance: No Apparent Distress, Anxious, Other (Moderate protein) HEENT: PERRL/EOMI, Normal ENT Inspection Cardiovascular: Regular Rate, Rhythm Back: CVA Tenderness (L) Neurologic/Psychiatric: Oriented x3, No Motor/Sensory Deficits Progress/Results/Core Measures Results/Orders My Orders Orders - CHEYENNE NAVARRO DO Oxycodone/Apap 5/325mg Tablet (Percocet (05/31/22 10:00) Vital Signs/I&O 05/31/22 09:25 Temp 36.7 Pulse 73 Resp 16 B/P (MAP) 159/87 (111) Pulse Ox 100 O2 Delivery Room Air Departure Communication (Admissions) Lumbar radiculopathy. Pain poorly controlled. No focal neurologic deficits Case discussed in detail with provider. Recommendations are continued prednisone, tramadol pain management follow-up. Patient's pain addressed. Further management per PCP. Return precautions reviewed. Patient verbalizes understanding agreement discharge instructions prior to departure. Impression Primary Impression: Lumbar radiculopathy Disposition: HOME, SELF-CARE Condition: Stable Departure-Patient Inst. Decision time for Depature: 10:02 Referrals: LARS WATERS MD (PCP) Primary Care Physician Patient Instructions: Low Back Pain (DC) Add. Discharge Instructions: You were evaluated in the emergency department for exacerbation of low back pain. Please continue prednisone, take tramadol as directed and Tylenol as needed for additional pain relief. Follow the instructions of your primary care provider and follow-up and spinal specialist. All discharge instructions reviewed with patient and/or family. Voiced understanding. Scripts Tramadol HCl (Tramadol HCl) 50 Mg Tablet 100 MG PO Q6H PRN for PAIN for 3 Days, #20 TAB 0 Refills Prov: CHEYENNE NAVARRO DO 05/31/22 CHEYENNE NAVARRO DO May 31, 2022 09:39
[2022-05-31] MEDS ORDERED: oxyCODONE/APAP 5/325MG (PERCOCET 5) TABLET PO ONE (10:00)
[2022-05-31] MEDS ORDERED: TRM50T PO (10:03)
[2022-05-31 10:09] VITALS: BP 159/87
== END 2022-05-31 10:13 | disposition home or self-care (01) ==
LOC: EDUNIT# 09:16 → ER FS 09:18
DX: M54.16 Radiculopathy, lumbar region (principal)
CPT/HCPCS: 99283